=== PATIENT | male | born 1995 | race African-American/Black ===

== ENCOUNTER 2025-07-07 16:28 | Emergency (ER) | payer OTHER ==
[~2025-07-07] VITALS: Ht 175.3 cm; Wt 104.3 kg
[2025-07-07] MEDS ORDERED: Ketorolac Tromethamine 30mg Vial IM ONE (16:40)
[2025-07-07] MEDS ORDERED: HYDR1TAB94 PO (17:32)
[2025-07-07] MEDS ORDERED: HYDROcodone 5-APAP 325 TAB PO ONE (18:05)
== END 2025-07-07 18:25 | disposition home or self-care (01) ==
LOC: ER 16:28
DX: S82.62XA Displaced fracture of lateral malleolus of left fibula, initial encounter for closed fracture (principal); W19.XXXA Unspecified fall, initial encounter
CPT/HCPCS: 73610; 99283-25